=== PATIENT | male | born 1990 | race African-American/Black ===

== ENCOUNTER 2016-11-03 14:11 | Emergency (ER) | payer SELFPAY ==
[~2016-11-03] VITALS: Ht 182.9 cm; Wt 80.0 kg
[~2016-11-03 14:11] MED LIST: IOHEXOL-350 100 ML BOTTLE ONE; SODIUM CHLORIDE 0.9% 10ML VIAL ONE
[2016-11-03] MEDS ORDERED: MORPHINE SULFATE 10 MG/ML CPJ IM ONE (15:00)
[2016-11-03 15:18] LABS: BASOPHILS % 0.4 % (0.0-2.0); EOSINOPHILS % 0.6 % (0.0-5.0); HEMATOCRIT. 40.4 % (42.0-52.0); HEMOGLOBIN. 13.1 g/dL (14.0-18.0); LYMPHOCYTES % 13.4 % (20.0-50.0); MEAN CORPUSCULAR HEMOGLOBIN 27.6 pg (28.0-32.0); MEAN CORPUSCULAR HGB CONC 32.3 g/dL (31.0-37.0); MEAN CORPUSCULAR VOLUME 85.6 fL (80.0-94.0); MEAN PLATELET VOLUME 7.1 fl (7.4-10.4); MONOCYTES % 8.1 % (2.0-8.0); NEUTROPHILS % 77.5 % (40.0-76.0); PLATELET 342 x1000/uL (130-400); RED BLOOD CELL COUNT 4.73 mill/uL (4.7-6.1); WHITE BLOOD COUNT 7.7 x1000/uL (4.5-11.0)
[2016-11-03 15:19] LABS: CHLORIDE 106 mEq/L (98-107); INDEX HEMOLYSI 1 (1-3); INDEX ICTERIC 1 (1-4); INDEX LIPEMIC 1 (1-3)
[2016-11-03 15:21] LABS: INR 1.1; PROTHROMBIN TIME 11.4 sec
[2016-11-03 15:26] LABS: ALANINE AMINOTRANSFERASE 20 IU/L (13-61); ANION GAP 13; CALCIUM 9.2 mg/dL (8.5-10.1); CARBON DIOXIDE 27 mEq/L (21-32); UREA NITROGEN BLOOD 8 mg/dL (7-21); eGFR > 60 mL/min (>60)
[2016-11-03 15:36] LABS: LACTIC ACID 2.1 mmol/L (0.4-2.0)
[2016-11-03] MEDS ORDERED: LEVOFLOXACIN 750MG PREMIX 150 ML IV ONE (18:30)
[2016-11-03] MEDS ORDERED: SODIUM CHLORIDE 0.9% 1,000 ML IV ONE (18:30)
[2016-11-03] MEDS ORDERED: VANCOMYCIN 1 G PREMIX 200 ML IV SCH (18:30)
[2016-11-03 21:15] VITALS: BP 132/84
== END 2016-11-03 21:48 | disposition home or self-care (01) ==
LOC: ER 15:52
DX: L03.115 Cellulitis of right lower limb (principal); Z98.890 Other specified postprocedural states; Z88.6 Allergy status to analgesic agent
CPT/HCPCS: 36415; 72191; 73706; 80053; 83605; 85025; 85610; 96365; 96367; 96372; 99285; A4216; J1956; J2270; J3370; J7030; Q9967; Z7610